=== PATIENT | male | born 1975 | race Two or more races ===

== ENCOUNTER 2023-07-02 10:15 | Outpatient (CLI) | payer BC ==
[2023-07-02 17:47] LABS: CALCIUM 9.4 mg/dL (8.5-10.3); CREATININE 0.8 mg/dL (0.6-1.3); POTASSIUM 4.1 mmol/L (3.5-4.5)
[2023-07-02 17:55] LABS: CREATININE,URINE 46.5 mg/dL; MICROALBUM/CREATININE RATIO,UR 131.2 ug/mg (<30.0); MICROALBUMIN,URINE 6.1 mg/dL
[2023-07-02 20:59] LABS: ESTIMATED AVERAGE GLUCOSE 260 mg/dL (70-100); HEMOGLOBIN A1c% 10.7 % (4.27-6.07)
== END 2023-07-02 10:30 | disposition home or self-care (01) ==
LOC: LAB.N 10:15
PROVIDERS: ATTEND Physician Assistant
DX: E11.9 Type 2 diabetes mellitus without complications (principal)
CPT/HCPCS: 36415; 80048; 82043; 82570; 83036

== ENCOUNTER 2023-07-07 12:16 | Emergency (ER) | payer BC ==
[2023-07-07 13:08] LABS: BASOPHILS % (AUTO) 0.4 %; EOSINOPHILS # (AUTO) 0.2 10^3/uL (0.0-0.7); EOSINOPHILS % (AUTO) 4.3 %; HCT - HEMATOCRIT 50.9 % (42.0-52.0); HGB - HEMOGLOBIN 17.4 g/dL (14.0-18.0); LYMPHOCYTES # (AUTO) 2.1 10^3/uL (1.5-3.5); LYMPHOCYTES % (AUTO) 39.7 %; MEAN CORPUSCULAR HEMOGLOBIN 30.7 pg (27.0-31.0); MEAN CORPUSCULAR HGB CONC 34.2 g/dL (32.0-36.0); MEAN CORPUSCULAR VOLUME 89.8 fL (80.0-94.0); MEAN PLATELET VOLUME 11.1 fL (7.4-11.4); MONOCYTES # (AUTO) 0.4 10^3/uL (0.0-1.0); MONOCYTES % (AUTO) 7.9 %; NEUTROPHILS # (AUTO) 2.5 10^3/uL (1.5-6.6); NEUTROPHILS % (AUTO) 47.3 %; PLT - PLATELET COUNT 159 10^3/uL (130-450); RED BLOOD COUNT 5.67 10^6/uL (4.70-6.10); RED CELL DISTRIBUTION WIDTH 11.3 % (12.0-15.0); WHITE BLOOD COUNT 5.3 x10^3/uL (4.8-10.8)
--- NOTE | 2023-07-07 13:11 | XRAY Report ---
PROCEDURE: Chest 1V INDICATIONS: Chest pain TECHNIQUE: One view of the chest was acquired. COMPARISON: None. FINDINGS: Surgical changes and devices: None. Lungs and pleura: No pleural effusions or pneumothorax. Lungs are clear. Mediastinum: Mediastinal contours appear normal. Heart size is normal. Bones and chest wall: No suspicious bony lesions. Overlying soft tissues appear unremarkable. IMPRESSION: No acute cardiopulmonary process. Reviewed by: Ping Webster MD, PhD on 07/07/2023 1:09 PM [facility] Approved by: Ping Webster MD, PhD on 07/07/2023 1:09 PM [facility] Station ID: [id number]
[2023-07-07 13:27] LABS: ALBUMIN 4.5 g/dL (3.2-5.5); ALBUMIN/GLOBULIN RATIO 1.4 (1.0-2.2); BILIRUBIN,TOTAL 0.4 mg/dL (0.2-1.0); CALCIUM 10.1 mg/dL (8.5-10.3); CREATININE 0.8 mg/dL (0.6-1.3); TOTAL PROTEIN 7.7 g/dL (6.4-8.9)
[2023-07-07 13:33] LABS: TROPONIN I HIGH SENSITIVITY 4.2 ng/L (2.3-19.7)
--- NOTE | 2023-07-07 14:27 | ED Physician Documentation ---
PD HPI CHEST PAIN - Stated complaint Stated Complaint: LT CHEST/SIDE PX - Chief complaint Chief Complaint: Cardiac - Additional information Additional information: 47-year-old male recently diagnosed with type 2 diabetes presents emergency de partment for left-sided chest pain. Patient said that he has been struggling with this chest pain now for months but today it feels more "itchy". He says that radiates into his left armpit. Because he was recently diagnosed with type 2 diabetes he says he is little more nervous which is what he wanted to come to the emergency department to make sure that he was not have any sort of cardiac emergencies. He has no shortness of breath no vision changes no dizziness PD PAST MEDICAL HISTORY - Past Medical History Past Medical History: Yes Cardiovascular: Hypertension, Other Respiratory: None Endocrine/Autoimmune: Type 2 diabetes GI: GERD, Ulcers, Hemorrhoids : Frequency HEENT: None Psych: Depression, Anxiety Musculoskeletal: Chronic back pain Derm: Other - Past Surgical History Past Surgical History: Yes General: Colonoscopy, EGD, Other - Present Medications Home Medications: Ambulatory Orders Medication Instructions Recorded Confirmed Omeprazole [PriLOSEC] 20 mg PO DAILY 02/17/15 07/07/23 Ibuprofen 800 mg PO BID PRN 03/22/15 07/07/23 Atorvastatin [Lipitor] 20 mg PO QPM 07/07/23 07/07/23 Empagliflozin [Jardiance] 10 mg PO DAILY 07/07/23 07/07/23 Metformin HCl 1,000 mg PO BID 07/07/23 07/07/23 - Allergies Allergies/Adverse Reactions: Allergies Allergy/AdvReac Type Severity Reaction Status Date / Time No Known Drug Allergies Allergy Verified 07/07/23 12:43 - Social History Does the pt smoke?: No Smoking Status: Never smoker Does the pt drink ETOH?: Yes Does the pt have substance abuse?: Yes Substance Use and Type: Marijuana - Immunizations Immunizations are current?: Yes PD ED PE NORMAL - Vitals Vital signs reviewed: Yes - General General: Alert and oriented X 3, No acute distress, Well developed/nourished - HEENT HEENT: Atraumatic - Neck Neck: Supple, no meningeal sign - Cardiac Cardiac: RRR, No murmur, No gallop, Strong equal pulses - Respiratory Respiratory: No respiratory distress, Clear bilaterally - Abdomen Abdomen: Normal bowel sounds, Non tender - Derm Derm: Normal color, Warm and dry, No rash - Extremities Extremities: No edema - Neuro Neuro: Alert and oriented X 3 Results - Vitals Vitals: Vital Signs - 24 hr 07/07/23 07/07/23 07/07/23 12:44 14:15 14:35 Temperature 36.9 C Heart Rate 97 96 98 Respiratory 18 20 20 Rate Blood Pressure 152/113 H 155/116 H 148/102 H O2 Saturation 97 95 100 07/07/23 07/07/23 15:28 15:50 Temperature Heart Rate 99 93 Respiratory 17 16 Rate Blood Pressure 164/104 H 158/116 H O2 Saturation 95 95 Oxygen O2 Source Room air - EKG (time done) 1247 EKG releavant findings:: EKG personally interpreted by author of this note. Relevant findings are: Rate: Rate (enter#) (93) Rhythm: NSR [place]: Normal Intervals: Normal [place] QRS: Normal Ischemia: Normal ST segments Computer interpretation: Agree with computer - Labs Labs: Laboratory Tests 07/07/23 07/07/23 07/07/23 13:02 13:02 14:40 WBC 5.3 RBC 5.67 Hgb 17.4 Hct 50.9 MCV 89.8 MCH 30.7 MCHC 34.2 RDW 11.3 L Plt Count 159 MPV 11.1 Neut # (Auto) 2.5 Lymph # (Auto) 2.1 Rich # (Auto) 0.4 Eos # (Auto) 0.2 Baso # (Auto) 0.0 Absolute Nucleated RBC 0.00 Nucleated RBC % 0.0 Sodium 137 Potassium 4.0 Chloride 101 Carbon Dioxide 28 Anion Gap 8.0 BUN 15 Creatinine 0.8 Estimated GFR (MDRD) 103 Glucose 211 H Calcium 10.1 Total Bilirubin 0.4 AST 91 H ALT 150 H Alkaline Phosphatase 90 Troponin I High Sens 4.2 3.8 Total Protein 7.7 Albumin 4.5 Globulin 3.2 Albumin/Globulin Ratio 1.4 Lipase 47 - Rads (name of study) Chest x-ray Relevant Findings:: Final report received, EMP independent interpretation of test PD Medical Decision Making - ED course ED course: Exam without evidence of volume overload so doubt heart failure. EKG without signs of active ischemia. Given the timing of pain to ER presentation, single tr oponin was negative so doubt NSTEMI. Presentation not consistent with acute PE (PERC negative),pneumothorax (not visualized on chest xr), thoracic aortic dissection, pericarditis, tamponade, pneumonia (no infectious symptoms, clear chest xr), myocarditis (no recent illness, neg trop). HEART score:2 so plan to discharge patient home with PCP follow up. Departure - Departure Disposition: , Self Care Clinical Impression: Chest pain Qualifiers: Chest pain type: unspecified Qualified Code(s): R07.9 - Chest pain, unspecified Instructions: ED Chest Pain Atypical Unkn Cause Comments: Thank you for trusting us with your care we have completed labs as well as chest x-ray and EKG all do not show anything acute at this time concern for possible heart attack. Please follow-up with your primary care provider about this chest pain you have been experiencing and come back to the emergency department if you have any worsening symptoms such as shortness of breath, dizziness, nausea vomiting, or any other concerning symptoms. Forms: PCP List Discharge Date/Time: 07/07/23 15:57
[2023-07-07 15:34] VITALS: O2SAT 95
[2023-07-07 15:54] VITALS: BP 158/116
== END 2023-07-07 15:57 | disposition home or self-care (01) ==
LOC: ED 12:16
DX: R07.9 Chest pain, unspecified (principal); I10 Essential (primary) hypertension; E11.9 Type 2 diabetes mellitus without complications; Z79.84 Long term (current) use of oral hypoglycemic drugs; Z79.899 Other long term (current) drug therapy
CPT/HCPCS: 36415; 80053; 83690; 83735; 84484; 85025; 87633; 87637; 93005; 99283; 99284